=== PATIENT | female | born 1955 | race Caucasian/White ===

== ENCOUNTER 2022-11-24 10:46 | Emergency (ER) | payer OTHER ==
[~2022-11-24] VITALS: Ht 162.6 cm; Wt 107.5 kg
[2022-11-24 11:02] VITALS: BP 140/80; PULSE 71; RESP 20; TEMP 98.1; O2SAT 98
--- NOTE | 2022-11-24 11:15 | NUR ---
PT AMBULATED TO BED 12 WITH SPOUSE
--- NOTE | 2022-11-24 11:36 | NUR ---
MD JUNG BEDSIDE ASSESSING PT
[2022-11-24] MEDS ORDERED: CLON0.5T1 PO ×3 (12:07→13:34)
[2022-11-24 12:56] VITALS: BP 142/80; PULSE 74; RESP 17; O2SAT 98
--- NOTE | 2022-11-24 12:56 | NUR ---
Patient discharged with v/s stable. Written and verbal after care instructions given and explained. Patient alert, oriented and verbalized understanding of instructions. Ambulatory with steady gait. All questions addressed prior to discharge. ID band removed. Patient advised to follow up with PMD. Rx of KLONOPIN given. Patient educated on indication of medication including possible reaction and side effects. Opportunity to ask questions provided and answered.
== END 2022-11-24 12:56 | disposition home or self-care (01) ==
LOC: MED 10:46
DX: M26.609 Unspecified temporomandibular joint disorder, unspecified side (principal); F41.9 Anxiety disorder, unspecified; E11.9 Type 2 diabetes mellitus without complications; I10 Essential (primary) hypertension; Z79.4 Long term (current) use of insulin; Z79.899 Other long term (current) drug therapy
CPT/HCPCS: 99282; 99283